=== PATIENT | female | born 1955 | race Native Hawaiian/Other Pacific Islander ===

== ENCOUNTER 2019-02-08 19:46 | Emergency (ER) | payer OTHER ==
[~2019-02-08] VITALS: Ht 157.5 cm; Wt 106.6 kg
[~2019-02-08 19:46] MED LIST: ALUMSUS6 PO; CALCIUM PO; CHLO25TA12 PO; CHLO50TA22 PO; CHLORPROMAZINE PO; CLON0.5T36 PO; CLONAZEP ODT0.25 MG PO; DEPAKENE250 MG PO; DIVA500T2 PO; EQ ACETAMINOPH500 MG PO; FIBER LAXATIV0.52 GM PO; FLUOXETINE40 MG PO; GEODON60 MG PO; GLIM2TAB PO; GLIM4TAB PO; HUMALOG SC; HYDRALAZINE25 MG PO; ISOSORBIDE MN PO; LIPITOR10 MG PO; LITHIUM CARB150 MG PO; LORA1TAB17 PO; MAGNSUS68 PO; MUPI2OIN2 TOP; NOVOLIN R U-1001 ML SC; OLAN10INJ IM; OMEPRAZOLE DR PO; PANTOPRAZOLE SOD DR PO; QUET300T PO; SEROQUEL50 MG PO; SIMV20TA2 PO; TRAM50TA PO; TRAZ50TA36 PO; TRILEPTAL300 MG PO; TYLENOL325 MG PO; VALPROIC ACD250 MG PO; [UNRECOGNIZED DRUG - OTHER] EX; [UNRECOGNIZED DRUG - OTHER] PO
[2019-02-08 20:01] VITALS: BP 155/69; TEMP 98.2
[2019-02-08 20:38] LABS: POTASSIUM 4.5 mmol/L (3.6-5.2)
[2019-02-08 20:46] LABS: PLATELET COUNT 180 K/uL (152-353)
[2019-02-08] MEDS ORDERED: AMLODIPINE BESYLATE PO (21:57)
[2019-02-08] MEDS ORDERED: CALCIUM 600+D31 TA2 PO (22:05)
[2019-02-08] MEDS ORDERED: DIVALPROEX500 MG PO ×2 (22:06)
[2019-02-08] MEDS ORDERED: ISOS60TA6 PO (22:09)
[2019-02-08] MEDS ORDERED: INSU300I SC (22:10)
[2019-02-08] MEDS ORDERED: MELATONIN3 MG PO (22:11)
[2019-02-08] MEDS ORDERED: METO25TA4 PO (22:12)
[2019-02-08] MEDS ORDERED: SEROQUEL200 MG PO (22:13)
[2019-02-08] MEDS ORDERED: RISP1TAB PO (22:13)
[2019-02-08] MEDS ORDERED: TRAMADOL HYDROC50 MG PO (22:14)
[2019-02-08] MEDS ORDERED: VITAMIN D31000 UNIT PO (22:15)
[2019-02-08] MEDS ORDERED: BUDE1AER3 INH (22:17)
[2019-02-08] MEDS ORDERED: DICL1GEL2 TOP (22:22)
[2019-02-08] MEDS ORDERED: HYDROCORTISONE1 % TOP (22:24)
[2019-02-08] MEDS ORDERED: DIPH12.553 PO (22:25)
[2019-02-08] MEDS ORDERED: IPRATROPIUM-ALBUTERO INH (22:29)
== END 2019-02-08 20:41 | disposition other institution (70) ==
LOC: ED 19:46
PROVIDERS: Internal Medicine
DX: R45.1 Restlessness and agitation (principal); F20.89 Other schizophrenia; F31.89 Other bipolar disorder; M41.80 Other forms of scoliosis, site unspecified; Z04.6 Encounter for general psychiatric examination, requested by authority
CPT/HCPCS: 80053; 85027; 99285